=== PATIENT | male | born 1975 | race Caucasian/White ===

== ENCOUNTER 2024-04-09 15:53 | Emergency (ER) | payer BC, SELFPAY ==
[2024-04-09] VITALS (12 sets, daily range): BP systolic 149–191; BP diastolic 95–124; BMI 38.5
[2024-04-09 15:59] LABS: Glucose - Point of Care 429 mg/dl (70-99)
[2024-04-09] MEDS: NSS 1000 IV (16:34)
--- NOTE | 2024-04-09 16:36 | ED.GENMED ---
History of Present Illness
General
Chief Complaint: Blood Sugar Problem
Source: patient
Time Seen by Provider: 04/09/24 16:19
Travel History
Have you had any contact with someone who has COVID-19?: No
Do you have any symptoms of coronavirus? Fever > 100 degrees, chills, cough, shortness of breath, sore throat, loss of taste or smell, muscle aches, or headache?: No
History of Present Illness
History of Present Illness:
This patient is a 48-year-old male presents emergency department with a 1 week history of polyuria and polydipsia. He also notes 3 days ago that he developed blurry vision when looking in the distance. His girlfriend brought him an Accu-Chek
machine today when he checked it at home it was 450 which prompted his visit here. Patient denies chest pain, shortness of breath, abdominal pain, fever, chills, nausea, vomiting, anorexia, change in weight, dizziness. He denies black stool or
melena. Patient denies other complaints.
Past History
Past History
ED Past Medical History: HTN and Hypercholesterolemia
ED Past Surgical History: None
Social History
Tobacco: Former smoker
Alcohol: Occasional
Drug: None
Employment: Employed
Phy Exam
Physical Exam
Physical Exam:
GENERAL: Alert , in no apparent distress
EYE: pupils equal and reactive
NECK: Supple, no significant adenopathy.
ENT: o/p clr, mm slightly dry
CARDIAC: Regular rate and rhythm .
LUNGS: Clear breath sounds bilaterally, no acute respiratory distress, no wheezes/rales/rhonchi
ABDOMEN: Soft, without focal tenderness, no r/g, no cvat
NEUROLOGICAL: Alert and oriented, no focal neuro deficits
SKIN: Warm and dry, skin intact.
MUSCULOSKELETAL: No edema, well perfused.
PSYCH: Normal and appropriate interaction.
Course
Orders/Labs/Results
Orders:
Orders
04/09/24 16:19
Electrocardiogram (*1) Stat
Reason for Study: Other
Other Reason for Exam: Diabetes
EKG- Treatment ONCE
0.9% Sodium Chloride 1000 ml [Nss] 1,000 ml IV BOLUS
04/09/24 16:39
B-Hydroxybutyrate Urgent
Complete Blood Count/No Diff Urgent
Comprehensive Metabolic Panel Urgent
Urinalysis Reflex To Culture Urgent
Date Specimen was Collected: 04/09/24
Time Specimen was Collected: 16:32
Venous Blood Gas Stat
%Oxygen/Room Air: ra
04/09/24 21:00
Insulin Glargine Lantus [Lantus] 10 units Subcutaneous Insulin Syringe [Syringe-Insulin] 0 unit SC ONCE
Abnormal Lab Results
04/09/24 04/09/24 04/09/24
15:57 16:39 20:07
RBC 4.59 L 10^6/uL
(4.70-6.10)
Hct 37.7 L %
(39.0-52.0)
MPV 10.9 H fL
(7.4-10.4)
VBG pO2 66 H mmHg
(30-50)
Carbon Dioxide 20 L mmol/L
(22-30)
BUN 32 H mg/dl
(9-20)
Glucose 413 H mg/dl
(70-99)
Alkaline Phosphatase 182 H U/L
(38-126)
Urine Ketones 1+ A
(Negative)
Urine Glucose 3+ A
(Negative)
B-Hydroxybutyrate 0.98 H mmol/L
(0.02-0.27)
POC Glucose 429 H mg/dl 316 H mg/dl
(70-99) (70-99)
04/09/24 16:39
04/09/24 16:39
Vital Signs
Initial and Last Documented VS:
Initial Vital Signs
Temp Pulse Resp BP Pulse Ox
97.9 F 79 28 191/119 96
04/09/24 15:58 04/09/24 15:58 04/09/24 15:58 04/09/24 15:58 04/09/24 15:58
Last Documented Vital Signs
Temp Pulse Resp BP Pulse Ox
97.9 F 84 17 161/96 96
04/09/24 15:58 04/09/24 21:00 04/09/24 21:00 04/09/24 20:30 04/09/24 20:45
*Critical Care Note
Total Time (30-74mins, 75-104mins- exclusive of procedures): Not Applicable
Update Note
Update Note:
Patient presents to the Emergency Department with __polyuria, polydipsia, blurry vision, elevated blood sugar
Number and Complexity of Problems Addressed at the Encounter
� Chronic conditions affecting care:
� Acute Exacerbation and/or Progression of Chronic Illness:
� Differential Diagnosis includes: But not limited to type 1 diabetes, type 2 diabetes, UTI, etc.
Amount and/or Complexity of Data to be Reviewed and Analyzed
� I performed an independent evaluation of and my interpretation is:
EKG:read by me, nsr, no acute ischemia
CT:
Xrays:
Laboratory Studies:AG of 13, bicarb 20, vbg ph nl. ketones noted
Other:
� Review of other/old records reveals:
� Clinical information was obtained by an independent historian:
� Prescriptions/Medications Considered but not given:
� Further testing considered but not performed:
Risk of Complications and/or Morbidity or Mortality of Patient Management
� Social determinants of health affecting care:
� Discussion with other providers (PCP, Hospitalists, Consultants, etc):
� Escalation of care including admission/observation vs risk of discharge considered:c ase dw/ covering pcp Dr Rolanda Burgos, aware of labs, vitals, hx,p hysical etc. Recommend d/c and they will see in AM (her office will call)
to do dm education, insulin managemnet, etc etc. Recommend lantus before d/c. Repeat acucheck 316, lantus ordered. D/w pt import of f/u, his diagnosis, and reasson to rted.
ED Attending Note
-
Portions of this chart may have been created with voice recognition software.� Occasional wrong word or��sound alike� substitutions may have occurred due to the inherent limitations of voice recognition software.
Discharge Plan
Departure
Patient Disposition: Home (Routine Discharge)
Date of Disposition: 04/09/24
Time of Disposition: 20:18
Patient with high blood pressure during this ER visit?: Yes
Condition: Good
Discharge Problem:
Diabetes mellitus
Instructions: Diabetes Type 1, Adult (DC), BLOOD PRESSURE
Prescriptions:
No Action
atorvastatin 10 mg Tablet
10 mg PO DAILY
amlodipine 10 mg Tablet
10 mg PO DAILY
ibuprofen [Advil] 200 mg Tablet
600 mg PO DAILYPRN PRN (Reason: mild pain)
multivit with min-folic acid [Men's Multivitamin Gummies] 200 mcg Tablet,Chewable
2 tab PO DAILY
Referrals:
Femi Carpenter MD [Family Provider] - Tomorrow
Activity Restrictions/Additional Instructions:
YOU HAVE DIABETES. IT IS VERY VERY IMPORTANT THAT YOU SEE YOUR DOCTOR TOMORROW FOR FURTHER MANAGEMENT AND RECOMMENDATIONS. IF YOU DEVELOP CHEST PAIN, TROUBLE BREATHING, FEVER, VOMITING, DIZZINESS OR OTHER WORRISOME SIGNS, GO TO THE ER IMMEDIATELY!
Interventions
Interventions:
*Risk Screen - Suicide Last Done: 04/09/24 15:56
*General Assessment Last Done: 04/09/24 15:56
*Neglect/Abuse Screening Last Done: 04/09/24 15:56
*ED COVID-19 Vaccine History Last Done: 04/09/24 15:56
*Nursing Disposition Last Done: 04/09/24 21:19
ED- Neurological Assessment Last Done: 04/09/24 16:51
Discharge Date and Time
Discharge Date/Time: 04/09/24 21:19
Print Language: AUSTRALIAN
[2024-04-09 16:46] LABS: Venous Blood Gas B.E. -1.5 mmol/L (-4 to +4); Venous Blood Gas HCO3 22.9 mmol/L (22-27); Venous Blood Gas O2 Sat % 94.9 %; Venous Blood Gas pCO2 37 mmHg (35-48); Venous Blood Gas pO2 66 mmHg (30-50)
[2024-04-09 16:48] LABS: Hematocrit 37.7 % (39.0-52.0); Hemoglobin 13.7 g/dL (13.0-18.0); Mean Corp Hgb Conc. 36.3 g/dL (33.0-37.0); Mean Corpuscular Hgb 29.8 pg (27.0-31.0); Mean Corpuscular Volume 82.1 fL (80.0-94.0); Mean Platelet Volume 10.9 fL (7.4-10.4); Platelet Count 232 10^3/uL (130-400); Red Blood Cell Count 4.59 10^6/uL (4.70-6.10); Red Cell Dist. Width 12.6 % (11.5-14.5); White Blood Cell Count 9.9 10^3/uL (4.8-10.8)
[2024-04-09 16:49] LABS: Urine Albumin Negative (Neg - Trace); Urine Bilirubin Negative (Negative); Urine Character Clear (Clear); Urine Color Straw; Urine Glucose 3+ (Negative); Urine Ketone 1+ (Negative); Urine Leukocyte Negative (Negative); Urine Nitrite Negative (Negative); Urine Occult Blood Negative (Negative); Urine Specific Gravity 1.015 (<1.030); Urine Urobilinogen Negative (Neg - 1+)
[2024-04-09 17:44] LABS: ALT (SGPT) 42 U/L (0-50); AST (SGOT) 26 U/L (17-59); Albumin 4.3 g/dl (3.5-5.0); Alkaline Phosphatase 182 U/L (38-126); Blood Urea Nitrogen 32 mg/dl (9-20); Calcium 9.9 mg/dl (8.4-10.2); Carbon Dioxide 20 mmol/L (22-30); Chloride 102 mmol/L (98-107); Estimated Creatinine Clearance 109 ml/min; Glucose 413 mg/dl (70-99); Potassium 3.7 mmol/L (3.5-5.1); Sodium 135 mmol/L (135-145); Total Bilirubin 0.5 mg/dl (0.2-1.3); Total Protein 7.9 g/dl (6.3-8.2); eGFR > 60.00
[2024-04-09 17:50] LABS: B-Hydroxybutyrate 0.98 mmol/L (0.02-0.27)
[2024-04-09 20:09] LABS: Glucose - Point of Care 316 mg/dl (70-99)
[2024-04-09] MEDS: LANTUS 0.100000000000000006 UNITS SC (20:57)
== END 2024-04-09 21:19 | disposition home or self-care (01) ==
LOC: EMR 15:53
PROVIDERS: EMERGENCY PHYSICIAN Emergency Medicine; FAMILY PHYSICIAN Family Medicine
DX: E11.9 Type 2 diabetes mellitus without complications (principal); I10 Essential (primary) hypertension; E78.00 Pure hypercholesterolemia, unspecified; Z79.4 Long term (current) use of insulin; Z87.891 Personal history of nicotine dependence
CPT/HCPCS: 99283; 96360; 96372; 80053; 81003; 82010; 82805; 82962; 85027; 93005